=== PATIENT | female | born 1965 | race African-American/Black ===

== ENCOUNTER 2016-08-05 06:08 | Day surgery (SDC) | payer OTHER ==
[2016-08-02 15:08] VITALS: BMI 25.7
[2016-08-05] MEDS ORDERED: HEPARIN NA (PORCINE) 5,000 UNITS/ML 1ML VIAL ONE (06:33)
[2016-08-05] MEDS ORDERED: SUCCINYLCHOLINE CHLORIDE 200 MG/10 ML VIAL ONE (07:36)
[2016-08-05] MEDS ORDERED: ROCURONIUM BROMIDE 50 MG/5 ML VIAL ONE (07:36)
[2016-08-05] MEDS ORDERED: PROPOFOL 20 ML ONE ×2 (07:36)
[2016-08-05] MEDS ORDERED: MIDAZOLAM HCL 2 MG/2 ML SINGLE DOSE VIAL ONE (07:37)
--- NOTE | 2016-08-05 07:49 | HP ---
History & Physical Update - History History: No Change (50 yo F presents on 08/05/16, no changes from H&P present in paper chart.) - Physical Physical: No Change - Assessment Assessment: No Change - Plan Plan: No Change
[2016-08-05] MEDS ORDERED: DESFLURANE GAS 240 ML BOTTLE IH ONE (07:58)
[2016-08-05] MEDS ORDERED: LIDOCAINE 1%-EPI 1:100,000 30 ML MDV IJ ONE (08:16)
[2016-08-05] MEDS ORDERED: ceFAZolin SODIUM 1 GM VIAL ONE (08:33)
[2016-08-05] MEDS ORDERED: LIDOCAINE HCL/PF 2% SDV 5ML VIAL ONE (08:33)
[2016-08-05] MEDS ORDERED: KETOROLAC TROMETHAMINE 30 MG/1 ML VIAL ONE (08:37)
[2016-08-05] MEDS ORDERED: DEXAMETHASONE SOD PHOSPHATE 4 MG/1 ML VIAL ONE (08:37)
[2016-08-05] MEDS ORDERED: ONDANSETRON 4 MG/2 ML VIAL ONE (08:37)
[2016-08-05] MEDS ORDERED: LIDOCAINE 1%/EPI 1:100000 (50 ML MULTI DOSE VIAL) INF ONE ×2 (08:50)
[2016-08-05] MEDS ORDERED: ePHEDrine SULFATE 50 MG/1 ML AMPULE ONE (08:56)
[2016-08-05] MEDS ORDERED: HYDROmorphone HCL/PF 1 MG/ML VIAL (FOR PYXIS CHARGING ONLY) ONE (10:10)
[2016-08-05] MEDS ORDERED: NEOSTIGMINE METHYLSULFATE 0.5 MG/ML - 10 ML MDV ONE (11:18)
[2016-08-05] MEDS ORDERED: GLYCOPYRROLATE 0.2 MG/1 ML VIAL ONE (11:20)
--- NOTE | 2016-08-05 11:55 | OP ---
Operative Note - Note: Operative Date: 08/05/16 Pre-Operative Diagnosis: Right breast cancer, s/p TRAM flap reconstruction Operation: Right breast TRAM flap reconstruction revision, Left breast reduction , revision of TRAM flap donor site scars, excision hypertrophic scars of right breast Post-Operative Diagnosis: Same as Pre-op Surgeon: Espinoza Wood Biology Manager: Trixie Hirsch Anesthesiologist/VENDING MACHINE COLLECTOR: Dorene Miller Anesthesia: General Specimens Removed: Left breast tissue and skin Estimated Blood Loss (mls): 50 Fluid Volume Replaced (mls): 1,300 Operative Report Dictated: Yes
--- NOTE | 2016-08-05 11:58 | SURG ---
Surgery Lead Generation Representative Note Lead Generation Representative: Trixie Hirsch PA-C Date of Service: 08/05/16 Diagnosis: Right breast cancer, s/p TRAM flap reconstruction Procedure: Right breast TRAM flap reconstruction revision, Left breast reduction, revision of TRAM flap donor site scars, excision hypertrophic scars of right breast I was present for the entirety of the operative procedure. For further detail, please refer to operative report. Visit type - Case Type Case Type: Scheduled Admission - New patient This patient is new to me today: Yes Date on this admission: 08/05/16
[2016-08-05 12:05] VITALS: TEMP 97.9
[2016-08-05 14:34] VITALS: BP 116/74; PULSE 61
[2016-08-05] MEDS ORDERED: ONDANSETRON 4 MG/2 ML VIAL IVPUSH PRN (14:34)
[2016-08-05] MEDS ORDERED: oxyCODONE HCL 5 MG TABLET PO PRN ×2 (14:34→14:35)
[2016-08-05] MEDS ORDERED: PROMETHAZINE HCL 25 MG/1 ML VIAL IVPUSH PRN (14:35)
[2016-08-05] MEDS ORDERED: LACTATED RINGERS SOLUTION 1,000 ML IV SCH (14:45)
--- NOTE | 2016-08-06 13:37 | OP ---
DATE OF OPERATION: 08/05/2016 PROCEDURE: Right breast revision of TRAM flap (transverse rectus abdominis myocutaneous flap) reconstruction by recreation of new inframammary fold and re-inset of entire flap along with a superior scar revision, left breast balancing reduction, with lowering of inframammary fold, and bilateral donor site scar revision with advancement skin flaps at TRAM donor site. ATTENDING SURGEON: Espinoza Wood MD FLY RAISER LOCKSTITCH: BERNABE Paredes ANESTHESIA: General endotracheal anesthesia and additional 19 mL of 1% lidocaine with 1:100,00 epinephrine is given to the incisional sites. This is spread over the course of the case, which is roughly 2-1/2 hours. The patient is marked in the holding area, planned for an inverted-T pattern Ann type bipedicled reduction on the left breast and an evening of inframammary folds with elevation of the inframammary fold on the right-sided TRAM flap reconstruction and lowering of inframammary fold on the breast reduction site. Dog ear scar revisions are marked in the holding area. The patient is awake, aware of all incisions and resulting scars. Sequential compression stockings are applied preoperatively. She received 5000 units of subcutaneous heparin preoperatively. MIKAELA compression hose are applied preoperatively. She is brought to the operating room, placed in a supine position. Position is carefully checked by surgical and anesthesia teams. All pressure points are carefully padded. Arms are secured. The patient is then prepped and draped in standard surgical fashion. A gram of Ancef is given preoperatively. A time-out is called. Patient, procedure, side and sites are verified. At this point attention is 1st directed toward the left breast, where a reduction is planned. A bipedicled superior and inferior connection is preserved and the bipedicle is de-epithelialized with the exception of the nipple-areolar complex. Skin flaps are then elevated medially and laterally. Tissue from both the inferomedial and inferolateral breast is excised. Hemostasis is meticulously achieved. The weight of the excised tissue is 122 g. The inframammary fold is then marked for lowering roughly 1.5 cm. The chest wall is exposed and retention tacking sutures with 0 PDS are used to attach the Ana's layer fascia to the chest wall fascia along the length of the scar, fixing the abdominal wall skin. Once this was completed, the skin flaps are set with a half-buried mattress 2-0 nylon suture. Skin is tailor-tacked. Closure of the wound is deferred until the contralateral side is addressed. On the contralateral side, incision is made along the existing inframammary crease at the inferior border of the TRAM skin paddle. At this point the flap is from the surrounding tissue and elevated, mobilized superiorly for several centimeters so that tacking repositioning sutures could be placed. This is again with a series of buried 0 PDS suture from the deepest dermal elements of the flap to the chest wall along the entire inframammary fold. This is positioned to equal the contralateral side with the patient in a seated upright position. Separately the abdominal skin flap is then created and advanced superiorly and tacked to the chest wall with a series of buried 0 PDS sutures in a very similar fashion from the dermis to the chest wall fascia. At the completion of this, the closure of the new inframammary fold is performed with a series of interrupted buried deep dermal 3-0 Monocryl suture followed by running subcuticular 3-0 Monocryl suture. Superiorly on the TRAM flap, a scar at the site of the initial umbilicus from the TRAM paddle is excised. The deep scar tissue is preserved and imbricated upon itself to allow for better volume. The skin is advanced over the preserved scar tissue and closed to itself, 1st with a series of interrupted buried deep dermal 3-0 Monocryl suture followed by a series of running 5-0 nylon. This is done in a T pattern, converting the defect from an O to T rearrangement, dog ears are excised on each limb of the T and closed with interrupted 5-0 nylon suture. The abdominal scar revision is then performed with an elliptical excision of skin and fat on both sides of the abdominal donor site wound. Hemostasis is achieved as fat is excised to remove the abdominal scar deformity. The deep tissue is approximated with a buried 3-0 Biosyn suture. Skin is then approximated with a series of interrupted buried deep dermal 3-0 Monocryl suture followed by running subcuticular 3-0 Monocryl suture. The skin is advanced medially in order to eliminate any lateral gathering. Dog ear is excised medially and closed in a similar fashion. This scar revision is performed bilaterally on either side of the abdominal donor site scar. Attention is then directed towards closure of the left-sided breast reduction wound, which is done in the following fashion: A series of interrupted buried deep dermal 3-0 Monocryl suture are used for the vertical and horizontal limbs, followed by a running subcuticular 3-0 Monocryl suture. The skin of the nipple-areola is inset into the keyhole pattern with a series of interrupted buried deep dermal 4-0 Monocryl suture followed by running subcuticular 4-0 Monocryl suture. All dermal edges are bleeding viably. The skin irregularities are treated with interrupted 5-0 nylon suture. Wounds are dressed with Steri-Strips, a 4 x 4 gauze, and Hypafix tape. A surgical bar is applied. She is awoken from anesthesia, transferred to recovery without complication. ESPINOZA WOOD M.D. [id number]
--- NOTE | 2016-08-07 13:24 | PATH ---
Surgical Pathology Report Patient Name: CHRIS BOLAÑOS [facility]. Rec. #: [id number] /Age/Gender: 1965 (Age: 50) / F Account: [id number] Location: [facility] Taken: 08/05/2016 Received: 08/05/2016 Reported: 08/07/2016 Physicians: Espinoza Wood Specimen(s) Received A: LEFT BREAST TISSUE B: RIGHT AND LEFT ABDOMINAL DOG EARS Clinical History Right breast reconstruction with left breast reduction Final Diagnosis A. BREAST TISSUE, LEFT, REDUCTION MAMMOPLASTY: BENIGN BREAST TISSUE AND BENIGN SKIN. B. ABDOMINAL DOG YEARS, RIGHT AND LEFT: BENIGN SKIN. Electronically Signed Yung García M.D. Gross Description A. Received in formalin, labeled "left breast tissue" is a 129 g, 11.5 x 9.0 x 2.5 cm aggregate of multiple poole-yellow, irregular, unoriented portions of fibroadipose tissue as well as brown, unremarkable skin. Sectioning reveals foci of white fibrous tissue. No definitive masses are identified. Cafeteria Or Lunchroom Checker sections are submitted in 3 cassettes. B. Received in formalin, labeled "right and left abdominal dog ears" is a 6.0 x 4.5 x 2.3 cm aggregate of multiple irregular, unoriented portions of soft tissue. The 2 larger portions are surfaced by brown, unremarkable skin. No definitive lesions are identified. Cafeteria Or Lunchroom Checker sections are submitted in one cassette. 08/06/201608/06/2016
== END 2016-08-05 14:30 | disposition home or self-care (01) ==
LOC: FASU 06:08
PROVIDERS: ATTEND Plastic Surgery
PROC: 0HX5XZZ Transfer Chest Skin, External Approach (ICD-10-PCS; 2016-08-05)
PROC: 0HRT07Z Replacement of Right Breast with Autologous Tissue Substitute, Open Approach (ICD-10-PCS; principal; 2016-08-05 08:52)
PROC: 0HBV0ZZ Excision of Bilateral Breast, Open Approach (ICD-10-PCS; 2016-08-05 08:52)
DX: C50.911 Malignant neoplasm of unspecified site of right female breast (principal); N65.1 Disproportion of reconstructed breast
CPT/HCPCS: 88302-TC; 88305-TC; 94760; J1644